=== PATIENT | male | born 1935 | race Caucasian/White ===

== ENCOUNTER 2020-07-23 22:28 | Inpatient (IN) | payer MEDICARE, MEDICAID ==
[~2020-07-23] VITALS: Ht 180.3 cm; Wt 93.4 kg
[2020-07-23] MEDS ORDERED: SODIUM CHLORIDE 0.9% 1,000 ML IV ONE (22:59)
[2020-07-23] MEDS ORDERED: ACETAMINOPHEN 650MG SUPP PR STA (22:59)
[2020-07-23] MEDS ORDERED: PIPERACILLIN/TAZ 3.375G PREMIX 50 ML IV ONE (23:00)
[2020-07-23] MEDS ORDERED: VANCOMYCIN 1 G PREMIX 200 ML IV ONE (23:00)
[2020-07-24] MEDS ORDERED: NOREPINEPHRINE 8 MG in DEXT 5% WATER 242 ML IV STA (00:09)
[2020-07-24] MEDS ORDERED: SODIUM CHLORIDE 0.9% 1000ML BAG (SEPSIS BOLUS) IV ONE (00:15)
[2020-07-24] MEDS ORDERED: AZITHROMYCIN 500 MG in DEXT 5% WATER 250 ML IV SCH (00:15)
[2020-07-24 00:16] LABS: BASOPHILS % 0.6 % (0.0-2.0); EOSINOPHILS % 0.9 % (0.0-5.0); HEMATOCRIT. 34.3 % (42.0-52.0); HEMOGLOBIN. 10.6 g/dL (14.0-18.0); LYMPHOCYTES % 16.1 % (20.0-50.0); MEAN CORPUSCULAR HEMOGLOBIN 28.8 pg (28.0-32.0); MEAN CORPUSCULAR VOLUME 93.2 fL (80.0-94.0); MEAN PLATELET VOLUME 10.2 fl (7.4-10.4); MONOCYTES % 3.5 % (2.0-8.0); NEUTROPHILS % 78.9 % (40.0-76.0); PLATELET 183 x1000/uL (130-400); RED BLOOD CELL COUNT 3.68 mill/uL (4.7-6.1); RED CELL DISTRIBUTION WIDTH 17.7 % (11.6-14.6)
[2020-07-24 00:24] LABS: CHLORIDE 107 mEq/L (98-107)
[2020-07-24 00:31] LABS: BETA HYDROXYBUTYRATE 0.2 mMol/L (0.0-0.3)
[2020-07-24 00:33] LABS: CREATINE KINASE 135 IU/L (39-308)
[2020-07-24] MEDS ORDERED: ASPIRIN 81MG TABLET PEG NR (01:00)
[2020-07-24 01:08] LABS: INR 1.1; PARTIAL THROMBOPLASTIN TIME 26.8 sec (23.4-31.0); PROTHROMBIN TIME 11.9 sec (9.6-11.0)
[2020-07-24] MEDS ORDERED: NOREPINEPHRINE 8MG/250ML PMX 250 ML IV PRN (01:45)
[2020-07-24 02:34] LABS: BG BASE EXCESS 13.3 mmol/L (-2.0-2.0); BG CARBOXYHEMOGLOBIN 1.5 % (0.5-1.5); BG DEOXYHEMOGLOBIN 6.3 % (0.0-5.0); BG FRACTION INSPIRED OXYGEN 30; BG HCO3 ACT 39.9 mmol/L (22.0-26.0); BG METHEMOGLOBIN 0.3 % (0.0-1.5); BG OXYGEN SATURATION 93.6 % (92.0-98.5); BG OXYHEMOGLOBIN 91.9 % (94.0-97.0); BG PCO2 57.6 mmHg (35.0-45.0); BG PH 7.458 (7.350-7.450); BG PO2 67.7 mmHg (75.0-100.0); BG SAMPLE SITE RIGHT RADIAL; BG TOTAL HEMOGLOBIN 14.7 g/dL (12.0-18.0); BG VENT MODE NASAL CANNULA
[2020-07-24] MEDS ORDERED: ACETAMINOPHEN 650MG SUPP PR NR (04:30)
[2020-07-24 08:14] LABS: CLARITY URINE CLOUDY (CLEAR); COLOR URINE DARK YELLOW (YELLOW); KETONES URINE TRACE (NEGATIVE); LEUKOCYTE ESTERASE URINE TRACE (NEGATIVE); NITRITE URINE NEGATIVE (NEGATIVE); OCCULT BLOOD URINE NEGATIVE (NEGATIVE); PROTEIN URINE 1+ (NEGATIVE); SPECIFIC GRAVITY URINE 1.023 (1.005-1.030)
[2020-07-24] MEDS ORDERED: DEXTROSE 50% WATER 50ML SYRINGE IV PRN (11:15)
[2020-07-24] MEDS ORDERED: PIPERACILLIN/TAZOBACTAM 3.375 G in DEXT 5% WATER 100 ML IV SCH (11:15)
[2020-07-24] MEDS: SODIUM CHLORIDE 0.45% 1,000 ML IV SCH ×2 (11:37→21:54)
[2020-07-24] MEDS ORDERED: VANCOMYCIN 1 G PREMIX 200 ML IV SCH (12:00)
[2020-07-24] MEDS: PIPERACILLIN/TAZOBACTAM 2.25 G in DEXTROSE 5% WATER 50 ML IV SCH ×2 (12:23→21:50)
[2020-07-24] MEDS ORDERED: INSULIN GLARGINE UD 100 UNITS/ML SYR SUBCUT ONE (12:30)
[2020-07-24] MEDS: BLOOD SUGAR DIAGNOSTIC STRIP TEST SCH ×3 (13:53→21:00)
[2020-07-24] MEDS: INSULIN LISPRO 100 UNITS/ML SUBCUT SCH ×2 (14:06→21:30)
[2020-07-24] MEDS: MIDODRINE HCL 5MG TABLET PO SCH ×2 (14:46→16:50)
[2020-07-24 17:48] LABS: BG BASE EXCESS 8.5 mmol/L (-2.0-2.0); BG DEOXYHEMOGLOBIN 1.7 % (0.0-5.0); BG FRACTION INSPIRED OXYGEN 36; BG HCO3 ACT 35.7 mmol/L (22.0-26.0); BG METHEMOGLOBIN 0.2 % (0.0-1.5); BG OXYGEN SATURATION 98.3 % (92.0-98.5); BG OXYHEMOGLOBIN 97.1 % (94.0-97.0); BG PCO2 61.8 mmHg (35.0-45.0); BG PH 7.379 (7.350-7.450); BG SAMPLE SITE LEFT RADIAL; BG TOTAL HEMOGLOBIN 12.7 g/dL (12.0-18.0); BG VENT MODE NASAL CANNULA
[2020-07-24] MEDS: ENOXAPARIN 100MG/ML SYR SUBCUT SCH (21:51)
[2020-07-24] MEDS ORDERED: INSULIN GLARGINE UD 100 UNITS/ML SYR SUBCUT SCH (22:00)
[2020-07-25] VITALS (103 sets, daily range): BP systolic 85–177; BP diastolic 27–114
[2020-07-25] MEDS ORDERED: NOREPINEPHRINE 8MG/250ML PMX 250 ML IV PRN (02:00)
[2020-07-25] MEDS: PIPERACILLIN/TAZOBACTAM 2.25 G in DEXTROSE 5% WATER 50 ML IV SCH ×4 (04:58→23:27)
[2020-07-25 05:33] LABS: HEMOGLOBIN. 10.3 g/dL (14.0-18.0); MEAN CORPUSCULAR HEMOGLOBIN 28.8 pg (28.0-32.0); MEAN CORPUSCULAR VOLUME 92.2 fL (80.0-94.0); PLATELET 230 x1000/uL (130-400); RED BLOOD CELL COUNT 3.58 mill/uL (4.7-6.1); RED CELL DISTRIBUTION WIDTH 17.7 % (11.6-14.6)
[2020-07-25] MEDS: INSULIN LISPRO 100 UNITS/ML SUBCUT SCH ×7 (06:35→21:36)
[2020-07-25] MEDS: BLOOD SUGAR DIAGNOSTIC STRIP TEST SCH ×4 (06:36→21:28)
[2020-07-25 07:23] LABS: PLATELET ESTIMATE NORMAL
[2020-07-25] MEDS: MIDODRINE HCL 5MG TABLET PO SCH ×3 (08:39→17:03)
[2020-07-25] MEDS ORDERED: SODIUM POLYSTYRENE SULFONATE 15 G/60 ML BOT PO NR (11:30)
[2020-07-25] MEDS ORDERED: NOREPINEPHRINE 8 MG in DEXT 5% WATER 242 ML IV PRN (12:00)
[2020-07-25] MEDS ORDERED: LIDOCAINE HCL 1% 20ML VIAL (Pyxis) INJ ONE (13:07)
[2020-07-25] MEDS ORDERED: VANCOMYCIN 1 G PREMIX 200 ML IV NR (15:00)
[2020-07-25] MEDS: ENOXAPARIN 100MG/ML SYR SUBCUT SCH (17:02)
[2020-07-25] MEDS: SODIUM CHLORIDE 0.45% 1,000 ML IV SCH (18:27)
[2020-07-25] MEDS ORDERED: ATOR10TA69 PO (18:54)
[2020-07-25] MEDS ORDERED: FURO-151 MT (18:54)
[2020-07-25] MEDS ORDERED: ONDA4TAB5 MT (18:54)
[2020-07-25] MEDS ORDERED: DIGO125T80 MT (18:54)
[2020-07-25] MEDS ORDERED: ASCO500C18 MT (18:54)
[2020-07-25] MEDS ORDERED: FINA5TAB11 MT (18:54)
[2020-07-25] MEDS ORDERED: GABA-529 MT (18:54)
[2020-07-25] MEDS ORDERED: LACT10SO7 MT (18:54)
[2020-07-25] MEDS ORDERED: INSNOV SUBCUT (18:54)
[2020-07-25] MEDS ORDERED: LANS30CA55 MT (18:54)
[2020-07-25] MEDS ORDERED: DILT60TA35 MT (18:54)
[2020-07-25] MEDS ORDERED: GLIM4TAB36 MT (18:54)
[2020-07-25] MEDS ORDERED: ZINC220T4 MT (18:54)
[2020-07-25] MEDS ORDERED: SENN1TAB35 MT (18:54)
[2020-07-25] MEDS ORDERED: MIDO5TAB4 MT (18:54)
[2020-07-25] MEDS ORDERED: APIX5TAB MT (18:54)
[2020-07-25] MEDS ORDERED: TERA2CAP4 MT (18:54)
[2020-07-25] MEDS ORDERED: MULT-230 MT (18:54)
[2020-07-25] MEDS ORDERED: LANTUSUD SUBCUT (18:54)
[2020-07-25] MEDS: INSULIN GLARGINE UD 100 UNITS/ML SYR SUBCUT SCH (21:37)
[2020-07-25] MEDS: PHENYLEPHRINE 50 MG in DEXT 5% WATER 245 ML IV PRN (23:28)
[2020-07-26] VITALS (88 sets, daily range): BP systolic 84–140; BP diastolic 45–89
[2020-07-26 05:09] LABS: BASOPHILS % 0.5 % (0.0-2.0); EOSINOPHILS % 1.1 % (0.0-5.0); HEMATOCRIT. 29.3 % (42.0-52.0); HEMOGLOBIN. 9.2 g/dL (14.0-18.0); LYMPHOCYTES % 7.1 % (20.0-50.0); MEAN CORPUSCULAR HEMOGLOBIN 28.8 pg (28.0-32.0); MEAN CORPUSCULAR VOLUME 91.8 fL (80.0-94.0); MEAN PLATELET VOLUME 10.4 fl (7.4-10.4); MONOCYTES % 3.1 % (2.0-8.0); NEUTROPHILS % 88.2 % (40.0-76.0); PLATELET 162 x1000/uL (130-400); RED BLOOD CELL COUNT 3.19 mill/uL (4.7-6.1); RED CELL DISTRIBUTION WIDTH 17.9 % (11.6-14.6)
[2020-07-26] MEDS: BLOOD SUGAR DIAGNOSTIC STRIP TEST SCH ×4 (06:35→21:03)
[2020-07-26] MEDS: INSULIN LISPRO 100 UNITS/ML SUBCUT SCH ×7 (06:36→21:08)
[2020-07-26] MEDS: PIPERACILLIN/TAZOBACTAM 2.25 G in DEXTROSE 5% WATER 50 ML IV SCH ×4 (06:39→23:55)
[2020-07-26] MEDS: MIDODRINE HCL 5MG TABLET PO SCH ×3 (08:28→16:20)
[2020-07-26] MEDS ORDERED: POTASSIUM CHLORIDE INJ 40 MEQ in DEXT 5% WATER 250 ML IV NR (08:30)
[2020-07-26] MEDS: PHENYLEPHRINE 50 MG in DEXT 5% WATER 245 ML IV PRN ×2 (08:46→17:36)
[2020-07-26] MEDS: INSULIN GLARGINE UD 100 UNITS/ML SYR SUBCUT SCH ×2 (08:49→21:09)
[2020-07-26] MEDS ORDERED: INSULIN GLARGINE UD 100 UNITS/ML SYR SUBCUT SCH (10:00)
[2020-07-26] MEDS ORDERED: GUAIFENESIN-DM 200MG-20MG/10ML UDC GT PRN (12:15)
[2020-07-26] MEDS ORDERED: VANCOMYCIN 1 G PREMIX 200 ML IV NR (14:00)
[2020-07-26] MEDS: ENOXAPARIN 80MG/0.8ML SYR SUBCUT SCH (16:21)
[2020-07-26] MEDS: GUAIFENESIN-DM 200MG-20MG/10ML UDC GT SCH (23:56)
[2020-07-26] MEDS: SODIUM CHLORIDE 0.45% 1,000 ML IV SCH (23:56)
[2020-07-27] VITALS (60 sets, daily range): BP systolic 70–155; BP diastolic 36–88
[2020-07-27] MEDS: PIPERACILLIN/TAZOBACTAM 2.25 G in DEXTROSE 5% WATER 50 ML IV SCH (05:09)
[2020-07-27] MEDS: GUAIFENESIN-DM 200MG-20MG/10ML UDC GT SCH ×3 (05:09→18:29)
[2020-07-27 06:22] LABS: BASOPHILS % 1.4 % (0.0-2.0); HEMATOCRIT. 30.6 % (42.0-52.0); HEMOGLOBIN. 9.7 g/dL (14.0-18.0); LYMPHOCYTES % 10.5 % (20.0-50.0); MEAN CORPUSCULAR HEMOGLOBIN 28.7 pg (28.0-32.0); MEAN PLATELET VOLUME 9.7 fl (7.4-10.4); MONOCYTES % 3.9 % (2.0-8.0); NEUTROPHILS % 82.2 % (40.0-76.0); PLATELET 176 x1000/uL (130-400); RED BLOOD CELL COUNT 3.36 mill/uL (4.7-6.1)
[2020-07-27] MEDS: BLOOD SUGAR DIAGNOSTIC STRIP TEST SCH ×4 (08:01→20:24)
[2020-07-27] MEDS: MIDODRINE HCL 5MG TABLET PO SCH ×3 (08:07→17:20)
[2020-07-27] MEDS: INSULIN LISPRO 100 UNITS/ML SUBCUT SCH ×7 (08:10→20:47)
[2020-07-27] MEDS: INSULIN GLARGINE UD 100 UNITS/ML SYR SUBCUT SCH ×2 (10:10→20:48)
[2020-07-27] MEDS ORDERED: POTASSIUM CHLORIDE 20MEQ/PACKET PO NR (10:15)
[2020-07-27] MEDS: PIPERACILLIN/TAZOBACTAM 3.375 G in DEXT 5% WATER 100 ML IV SCH ×2 (11:19→18:32)
[2020-07-27] MEDS ORDERED: KCL 20MEQ/100ML PREMIX 100 ML IV SCH (13:00)
[2020-07-27] MEDS: VANCOMYCIN 1 G PREMIX 200 ML IV SCH (13:37)
[2020-07-27] MEDS: ENOXAPARIN 80MG/0.8ML SYR SUBCUT SCH (17:20)
[2020-07-27] MEDS: SODIUM CHLORIDE 0.45% 1,000 ML IV SCH (19:15)
[2020-07-27] MEDS ORDERED: DIGOXIN 500MCG/2ML AMP IV SCH (23:45)
[2020-07-28] VITALS (39 sets, daily range): BP systolic 111–143; BP diastolic 54–74
[2020-07-28 05:01] LABS: BASOPHILS % 0.6 % (0.0-2.0); EOSINOPHILS % 3.1 % (0.0-5.0); HEMATOCRIT. 27.5 % (42.0-52.0); HEMOGLOBIN. 8.8 g/dL (14.0-18.0); LYMPHOCYTES % 13.9 % (20.0-50.0); MEAN PLATELET VOLUME 9.4 fl (7.4-10.4); MONOCYTES % 5.4 % (2.0-8.0); PLATELET 197 x1000/uL (130-400); RED BLOOD CELL COUNT 3.02 mill/uL (4.7-6.1); RED CELL DISTRIBUTION WIDTH 18.7 % (11.6-14.6)
[2020-07-28] MEDS: GUAIFENESIN-DM 200MG-20MG/10ML UDC GT SCH ×5 (06:22→23:11)
[2020-07-28] MEDS: PIPERACILLIN/TAZOBACTAM 3.375 G in DEXT 5% WATER 100 ML IV SCH ×4 (06:22→13:21)
[2020-07-28] MEDS: BLOOD SUGAR DIAGNOSTIC STRIP TEST SCH ×3 (07:50→20:10)
[2020-07-28] MEDS: INSULIN LISPRO 100 UNITS/ML SUBCUT SCH ×6 (07:50→20:10)
[2020-07-28] MEDS: MIDODRINE HCL 5MG TABLET PO SCH ×3 (09:21→17:00)
[2020-07-28] MEDS: INSULIN GLARGINE UD 100 UNITS/ML SYR SUBCUT SCH (11:00)
[2020-07-28] MEDS: ENOXAPARIN 80MG/0.8ML SYR SUBCUT SCH ×2 (13:35→23:11)
[2020-07-28] MEDS: VANCOMYCIN 1 G PREMIX 200 ML IV SCH (14:49)
[2020-07-28] MEDS: SODIUM CHLORIDE 0.45% 1,000 ML IV SCH (14:50)
[2020-07-28] MEDS ORDERED: DIGOXIN 500MCG/2ML AMP IV SCH (18:00)
[2020-07-29] VITALS (10 sets, daily range): BP systolic 108–159; BP diastolic 51–78
[2020-07-29] MEDS: GUAIFENESIN-DM 200MG-20MG/10ML UDC GT SCH ×2 (06:03→13:47)
[2020-07-29] MEDS: BLOOD SUGAR DIAGNOSTIC STRIP TEST SCH ×2 (06:04→11:50)
[2020-07-29 06:19] LABS: BASOPHILS % 0.7 % (0.0-2.0); EOSINOPHILS % 3.4 % (0.0-5.0); HEMATOCRIT. 26.1 % (42.0-52.0); HEMOGLOBIN. 8.4 g/dL (14.0-18.0); LYMPHOCYTES % 14.2 % (20.0-50.0); MEAN CORPUSCULAR HEMOGLOBIN 29.2 pg (28.0-32.0); MEAN CORPUSCULAR VOLUME 90.5 fL (80.0-94.0); MEAN PLATELET VOLUME 8.9 fl (7.4-10.4); MONOCYTES % 6.2 % (2.0-8.0); NEUTROPHILS % 75.5 % (40.0-76.0); PLATELET 241 x1000/uL (130-400); RED BLOOD CELL COUNT 2.89 mill/uL (4.7-6.1); RED CELL DISTRIBUTION WIDTH 18.6 % (11.6-14.6)
[2020-07-29] MEDS: INSULIN LISPRO 100 UNITS/ML SUBCUT SCH ×2 (06:55→10:22)
[2020-07-29 07:21] LABS: CHLORIDE 112 mEq/L (98-107)
[2020-07-29] MEDS: ENOXAPARIN 80MG/0.8ML SYR SUBCUT SCH (10:21)
[2020-07-29] MEDS: SODIUM CHLORIDE 0.45% 1,000 ML IV SCH (12:07)
[2020-07-29] MEDS ORDERED: MIDODRINE HCL 5MG TABLET PO SCH (13:00)
== END 2020-07-29 16:45 | DRG 871 ==
LOC: ER 22:28 → MICUSO 07-24 01:14 → EDBEDREQDT 07-24 01:18 → EDBEDREQTM 07-24 01:18 → EDBEDREQ 07-24 01:18 → EDBEDREQSVC 07-24 01:18 → EDBEDREQ 07-24 17:33 → ENRESERV 07-24 20:48 → CANRESERV 07-24 20:48 → MICUSO 07-25 05:43 → CVICU 07-27 01:49 → 3WST 07-28 16:59
PROVIDERS: ADMIT Internal Medicine; ATTEND Internal Medicine
PROC: 02HV33Z Insertion of Infusion Device into Superior Vena Cava, Percutaneous Approach (ICD-10-PCS; principal; 2020-07-25)
PROC: B518ZZA Fluoroscopy of Superior Vena Cava, Guidance (ICD-10-PCS; 2020-07-25)
PROC: B548ZZA Ultrasonography of Superior Vena Cava, Guidance (ICD-10-PCS; 2020-07-25)
DX: A41.9 Sepsis, unspecified organism (principal); R65.21 Severe sepsis with septic shock; L89.153 Pressure ulcer of sacral region, stage 3; J96.01 Acute respiratory failure with hypoxia; E43 Unspecified severe protein-calorie malnutrition; N17.0 Acute kidney failure with tubular necrosis; G93.41 Metabolic encephalopathy; E87.0 Hyperosmolality and hypernatremia; I50.22 Chronic systolic (congestive) heart failure; I13.0 Hypertensive heart and chronic kidney disease with heart failure and stage 1 through stage 4 chronic kidney disease, or unspecified chronic kidney disease; I48.20 Chronic atrial fibrillation, unspecified; I48.92 Unspecified atrial flutter; E87.4 Mixed disorder of acid-base balance; G93.40 Encephalopathy, unspecified; I42.9 Cardiomyopathy, unspecified; I69.954 Hemiplegia and hemiparesis following unspecified cerebrovascular disease affecting left non-dominant side; N18.9 Chronic kidney disease, unspecified; R13.10 Dysphagia, unspecified; E11.22 Type 2 diabetes mellitus with diabetic chronic kidney disease; E11.65 Type 2 diabetes mellitus with hyperglycemia; Z20.828 Contact with and (suspected) exposure to other viral communicable diseases; E78.5 Hyperlipidemia, unspecified; K21.9 Gastro-esophageal reflux disease without esophagitis; I48.0 Paroxysmal atrial fibrillation; I49.5 Sick sinus syndrome; N40.0 Benign prostatic hyperplasia without lower urinary tract symptoms; M10.9 Gout, unspecified; L89.156 Pressure-induced deep tissue damage of sacral region; D64.9 Anemia, unspecified; I49.1 Atrial premature depolarization; Z79.01 Long term (current) use of anticoagulants; Z79.4 Long term (current) use of insulin; Z93.1 Gastrostomy status; Z95.810 Presence of automatic (implantable) cardiac defibrillator; Z68.28 Body mass index [BMI] 28.0-28.9, adult; Z74.01 Bed confinement status
CPT/HCPCS: 36415; 36600; 71045; 76937; 80048; 80053; 80202; 81003; 82010; 82375; 82550; 82728; 82805; 82962; 83036; 83605; 83615; 83735; 83880; 84145; 84484; 85025; 86140; 87426; 87493; 87635; 87804; 93005; 93970; 99291; C1725; J0456; J1650; J1815; J2370; J2543; J3370; J3480; J3490; J7030; J7060

== ENCOUNTER 2020-08-14 14:16 | Inpatient (IN) | payer MEDICARE, MEDICAID ==
[~2020-08-14] VITALS: Ht 152.4 cm; Wt 90.3 kg
[~2020-08-14 14:16] MED LIST: AMIODARONE HCL 50MG/ML 3ML VIAL IV ONE; APIX5TAB MT; ASCO500C18 MT; ATOR10TA69 PO; ATROPINE SULFATE 1MG/10ML SYR ONE; DEXTROSE 50% WATER 50ML SYRINGE IV ONE; DIGO125T80 MT; DILT60TA35 MT; EPINEPHRINE 0.1MG/ML (1:10,000) 10ML SYR ONE; FINA5TAB11 MT; FURO-151 MT; GABA-529 MT; GLIM4TAB36 MT; INSNOV SUBCUT; LACT10SO7 MT; LANS30CA55 MT; LANTUSUD SUBCUT; MIDO5TAB4 MT; MULT-230 MT; ONDA4TAB5 MT; SENN1TAB35 MT; SODIUM BICARBONATE 8.4% 1 MEQ/ML 50ML SYR IV ONE; TERA2CAP4 MT; ZINC220T4 MT
[2020-08-14] MEDS ORDERED: SODIUM CHLORIDE 0.9% 1000ML BAG (SEPSIS BOLUS) IV ONE (14:30)
[2020-08-14] MEDS ORDERED: VANCOMYCIN 1 G PREMIX 200 ML IV ONE (14:30)
[2020-08-14] MEDS ORDERED: PIPERACILLIN/TAZ 3.375G PREMIX 50 ML IV ONE (14:30)
[2020-08-14] MEDS ORDERED: HYDROCORTISONE SOD SUCCINATE 100 MG/2 ML VIAL IV ONE (14:30)
[2020-08-14 15:04] LABS: BASOPHILS % 0.6 % (0.0-2.0); EOSINOPHILS % 1.6 % (0.0-5.0); HEMATOCRIT. 28.8 % (42.0-52.0); HEMOGLOBIN. 9.1 g/dL (14.0-18.0); LYMPHOCYTES % 11.2 % (20.0-50.0); MEAN CORPUSCULAR HEMOGLOBIN 28.4 pg (28.0-32.0); MEAN CORPUSCULAR VOLUME 90.1 fL (80.0-94.0); MEAN PLATELET VOLUME 8.9 fl (7.4-10.4); MONOCYTES % 5.6 % (2.0-8.0); PLATELET 268 x1000/uL (130-400); RED CELL DISTRIBUTION WIDTH 18.4 % (11.6-14.6)
[2020-08-14 15:13] LABS: CHLORIDE 107 mEq/L (98-107); INR 1.2; PROTHROMBIN TIME 12.4 sec (9.6-11.0)
[2020-08-14 15:25] LABS: CLARITY URINE TURBID (CLEAR); COLOR URINE DARK YELLOW (YELLOW); KETONES URINE NEGATIVE (NEGATIVE); LEUKOCYTE ESTERASE URINE 3+ (NEGATIVE); NITRITE URINE NEGATIVE (NEGATIVE); OCCULT BLOOD URINE 3+ (NEGATIVE); PROTEIN URINE 2+ (NEGATIVE); SPECIFIC GRAVITY URINE 1.022 (1.005-1.030)
[2020-08-14] MEDS ORDERED: NOREPINEPHRINE 8MG/250ML PMX 250 ML IV NR (15:30)
[2020-08-14 15:56] LABS: CANNABINOID URINE SCREEN NEGATIVE (NEGATIVE); OPIATES URINE SCREEN NEGATIVE (NEGATIVE); PHENCYCLIDINE URINE SCREEN NEGATIVE (NEGATIVE)
[2020-08-14 15:57] LABS: *AMPHETAMINES SCREEN URINE NEGATIVE (NEGATIVE); *BARBITURATES SCREEN URINE NEGATIVE (NEGATIVE); *BENZODIAZEPINES SCREEN URINE NEGATIVE (NEGATIVE); *COCAINE SCREEN URINE NEGATIVE (NEGATIVE); METHADONE URINE SCREEN NEGATIVE (NEGATIVE)
[2020-08-14] MEDS ORDERED: FENTANYL CITRATE/PF 50MCG/ML 2ML VIAL IV ONE (17:15)
[2020-08-14] MEDS ORDERED: MIDAZOLAM HCL 100 MG in DEXT 5% WATER 80 ML IV ONE (17:15)
[2020-08-14 22:42] VITALS: BP 145/67
[2020-08-14 22:45] VITALS: BP 147/77
[2020-08-14 23:00] VITALS: BP 136/79
[2020-08-14] MEDS ORDERED: IOHEXOL-300 100 ML BOTTLE ONE (23:09)
[2020-08-14 23:15] VITALS: BP 128/72
[2020-08-14] MEDS ORDERED: ONDANSETRON HCL 4MG/2ML INJ IV PRN (23:15)
[2020-08-14] MEDS ORDERED: NOREPINEPHRINE 8MG/250ML PMX 250 ML IV ONE (23:15)
[2020-08-14 23:30] VITALS: BP 133/70
[2020-08-14 23:33] LABS: BG BASE EXCESS 6.4 mmol/L (-2.0-2.0); BG CARBOXYHEMOGLOBIN 0.3 % (0.5-1.5); BG DEOXYHEMOGLOBIN 0.4 % (0.0-5.0); BG FRACTION INSPIRED OXYGEN 100; BG HCO3 ACT 30.5 mmol/L (22.0-26.0); BG METHEMOGLOBIN 0.4 % (0.0-1.5); BG OXYGEN SATURATION 99.6 % (92.0-98.5); BG OXYHEMOGLOBIN 98.9 % (94.0-97.0); BG PCO2 41.9 mmHg (35.0-45.0); BG PO2 508.9 mmHg (75.0-100.0); BG SAMPLE SITE RIGHT BRACHIAL; BG TOTAL HEMOGLOBIN 11.1 g/dL (12.0-18.0); BG VENT MODE VENT - AC
[2020-08-14 23:45] VITALS: BP 136/76
[2020-08-15] VITALS (82 sets, daily range): BP systolic 83–145; BP diastolic 38–72
[2020-08-15] MEDS ORDERED: DEXT 5%/0.45% NACL 1000ML 1,000 ML IV SCH
[2020-08-15] MEDS ORDERED: MIDAZOLAM HCL 100 MG in DEXT 5% WATER 80 ML IV PRN (00:30)
[2020-08-15] MEDS ORDERED: ETOMIDATE 2MG/ML 10ML VIAL IV ONE (00:30)
[2020-08-15] MEDS ORDERED: SUCCINYLCHOLINE CHLORIDE 200MG/10ML IV ONE (00:30)
[2020-08-15] MEDS ORDERED: ATROPINE SULFATE 1MG/10ML SYR ONE (00:30)
[2020-08-15] MEDS: PIPERACILLIN/TAZOBACTAM 2.25 G in DEXTROSE 5% WATER 50 ML IV SCH ×4 (01:11→17:09)
[2020-08-15] MEDS: NOREPINEPHRINE 8 MG in DEXTROSE 5% WATER 250 ML IV PRN ×3 (01:34→18:55)
[2020-08-15] MEDS ORDERED: PIPERACILLIN/TAZOBACTAM 3.375 G/VIAL IV SCH (06:00)
[2020-08-15 06:23] LABS: HEMATOCRIT. 29.6 % (42.0-52.0); HEMOGLOBIN. 9.1 g/dL (14.0-18.0); MEAN CORPUSCULAR HEMOGLOBIN 28.1 pg (28.0-32.0); MEAN CORPUSCULAR VOLUME 91.4 fL (80.0-94.0); MEAN PLATELET VOLUME 9.4 fl (7.4-10.4); PLATELET 290 x1000/uL (130-400); RED BLOOD CELL COUNT 3.24 mill/uL (4.7-6.1); RED CELL DISTRIBUTION WIDTH 18.4 % (11.6-14.6)
[2020-08-15] MEDS ORDERED: IPRATROPIUM/ALBUTEROL 0.5-3(2.5)MG/3ML NEB HHN PRN (08:45)
[2020-08-15] MEDS ORDERED: APIXABAN 2.5 MG TABLET PO SCH (09:00)
[2020-08-15] MEDS: PANTOPRAZOLE SODIUM 40 MG/VIAL IV SCH (09:04)
[2020-08-15 09:29] LABS: PLATELET ESTIMATE NORMAL
[2020-08-15] MEDS ORDERED: DEXTROSE 50% WATER 50ML SYRINGE IV PRN (09:30)
[2020-08-15] MEDS: INSULIN LISPRO 100 UNITS/ML SUBCUT SCH ×4 (09:32→21:57)
[2020-08-15] MEDS: BLOOD SUGAR DIAGNOSTIC STRIP TEST SCH ×4 (09:32→21:32)
[2020-08-15] MEDS: IPRATROPIUM/ALBUTEROL 0.5-3(2.5)MG/3ML NEB HHN SCH ×3 (12:19→20:42)
[2020-08-15] MEDS: SODIUM CHLORIDE 0.45% 1,000 ML IV SCH (12:37)
[2020-08-15] MEDS: DIGOXIN 125MCG TABLET GT SCH (17:08)
[2020-08-15] MEDS: VANCOMYCIN 750 MG PREMIX 150 ML IV SCH (17:08)
[2020-08-16] VITALS (63 sets, daily range): BP systolic 85–136; BP diastolic 40–69
[2020-08-16] MEDS: PIPERACILLIN/TAZOBACTAM 2.25 G in DEXTROSE 5% WATER 50 ML IV SCH ×4 (00:08→19:08)
[2020-08-16] MEDS: SODIUM CHLORIDE 0.45% 1,000 ML IV SCH ×2 (00:12→19:08)
[2020-08-16] MEDS: IPRATROPIUM/ALBUTEROL 0.5-3(2.5)MG/3ML NEB HHN SCH ×4 (01:21→20:57)
[2020-08-16 05:12] LABS: BASOPHILS % 0.5 % (0.0-2.0); EOSINOPHILS % 1.3 % (0.0-5.0); HEMATOCRIT. 25.8 % (42.0-52.0); HEMOGLOBIN. 8.1 g/dL (14.0-18.0); LYMPHOCYTES % 17.8 % (20.0-50.0); MEAN CORPUSCULAR HEMOGLOBIN 27.9 pg (28.0-32.0); MEAN CORPUSCULAR VOLUME 88.7 fL (80.0-94.0); MEAN PLATELET VOLUME 8.9 fl (7.4-10.4); MONOCYTES % 6.2 % (2.0-8.0); NEUTROPHILS % 74.2 % (40.0-76.0); PLATELET 253 x1000/uL (130-400); RED BLOOD CELL COUNT 2.91 mill/uL (4.7-6.1); RED CELL DISTRIBUTION WIDTH 18.6 % (11.6-14.6)
[2020-08-16] MEDS: BLOOD SUGAR DIAGNOSTIC STRIP TEST SCH ×4 (06:48→21:58)
[2020-08-16] MEDS: INSULIN LISPRO 100 UNITS/ML SUBCUT SCH ×4 (06:54→22:01)
[2020-08-16] MEDS: NOREPINEPHRINE 8 MG in DEXTROSE 5% WATER 250 ML IV PRN (08:32)
[2020-08-16 09:08] LABS: PHOSPHORUS 3.1 mg/dL (2.5-4.9)
[2020-08-16 09:13] LABS: BG BASE EXCESS 9.1 mmol/L (-2.0-2.0); BG CARBOXYHEMOGLOBIN 0.3 % (0.5-1.5); BG DEOXYHEMOGLOBIN 1.6 % (0.0-5.0); BG FRACTION INSPIRED OXYGEN 40; BG HCO3 ACT 31.4 mmol/L (22.0-26.0); BG METHEMOGLOBIN 0.3 % (0.0-1.5); BG OXYGEN SATURATION 98.4 % (92.0-98.5); BG OXYHEMOGLOBIN 97.8 % (94.0-97.0); BG PCO2 33.9 mmHg (35.0-45.0); BG PH 7.585 (7.350-7.450); BG PO2 121.5 mmHg (75.0-100.0); BG TOTAL HEMOGLOBIN 8.8 g/dL (12.0-18.0); BG VENT MODE VENT - AC
[2020-08-16] MEDS: PANTOPRAZOLE SODIUM 40 MG/VIAL IV SCH (09:23)
[2020-08-16] MEDS ORDERED: POTASSIUM CHLORIDE 20MEQ TABLET SR PO SCH (10:30)
[2020-08-16] MEDS ORDERED: ALBUMIN HUMAN 25GM/100ML (25%) IV NR (11:00)
[2020-08-16] MEDS: MIDODRINE HCL 5MG TABLET PO SCH ×2 (13:13→22:02)
[2020-08-16] MEDS: VANCOMYCIN 750 MG PREMIX 150 ML IV SCH (14:51)
[2020-08-16] MEDS: DIGOXIN 125MCG TABLET GT SCH (19:08)
[2020-08-17] VITALS (63 sets, daily range): BP systolic 95–140; BP diastolic 36–60
[2020-08-17] MEDS: PIPERACILLIN/TAZOBACTAM 2.25 G in DEXTROSE 5% WATER 50 ML IV SCH ×3 (00:06→11:54)
[2020-08-17] MEDS: SODIUM CHLORIDE 0.45% 1,000 ML IV SCH ×2 (01:30→09:31)
[2020-08-17] MEDS: IPRATROPIUM/ALBUTEROL 0.5-3(2.5)MG/3ML NEB HHN SCH ×2 (02:28→20:20)
[2020-08-17 05:15] LABS: BASOPHILS % 0.6 % (0.0-2.0); EOSINOPHILS % 8.2 % (0.0-5.0); HEMATOCRIT. 23.4 % (42.0-52.0); HEMOGLOBIN. 7.4 g/dL (14.0-18.0); MEAN CORPUSCULAR HEMOGLOBIN 28.4 pg (28.0-32.0); MEAN CORPUSCULAR VOLUME 89.8 fL (80.0-94.0); MEAN PLATELET VOLUME 8.8 fl (7.4-10.4); MONOCYTES % 5.5 % (2.0-8.0); NEUTROPHILS % 70.7 % (40.0-76.0); PLATELET 200 x1000/uL (130-400); RED BLOOD CELL COUNT 2.61 mill/uL (4.7-6.1); RED CELL DISTRIBUTION WIDTH 18.7 % (11.6-14.6)
[2020-08-17 05:32] LABS: PHOSPHORUS 4.2 mg/dL (2.5-4.9)
[2020-08-17] MEDS: INSULIN LISPRO 100 UNITS/ML SUBCUT SCH ×4 (05:44→21:43)
[2020-08-17] MEDS: MIDODRINE HCL 5MG TABLET PO SCH ×3 (05:45→21:47)
[2020-08-17] MEDS: BLOOD SUGAR DIAGNOSTIC STRIP TEST SCH ×4 (05:45→21:36)
[2020-08-17 08:03] LABS: BG BASE EXCESS 6.4 mmol/L (-2.0-2.0); BG CARBOXYHEMOGLOBIN 0.1 % (0.5-1.5); BG DEOXYHEMOGLOBIN 2.1 % (0.0-5.0); BG HCO3 ACT 30.2 mmol/L (22.0-26.0); BG METHEMOGLOBIN 0.5 % (0.0-1.5); BG OXYGEN SATURATION 97.9 % (92.0-98.5); BG OXYHEMOGLOBIN 97.3 % (94.0-97.0); BG PCO2 39.9 mmHg (35.0-45.0); BG PH 7.497 (7.350-7.450); BG PO2 121.4 mmHg (75.0-100.0); BG SAMPLE SITE ALINE; BG TOTAL HEMOGLOBIN 7.3 g/dL (12.0-18.0); BG TOTAL RESPIRATORY RATE 14 b/min; BG VENT MODE VENT - SIMV
[2020-08-17] MEDS: PANTOPRAZOLE SODIUM 40 MG/VIAL IV SCH (09:30)
[2020-08-17] MEDS ORDERED: POTASSIUM CHLORIDE INJ 40 MEQ in DEXT 5% WATER 250 ML IV SCH (10:00)
[2020-08-17] MEDS ORDERED: ALBUMIN HUMAN 25GM/100ML (25%) IV SCH (10:45)
[2020-08-17] MEDS ORDERED: POTASSIUM CHLORIDE 20MEQ TABLET SR PO NR (10:55)
[2020-08-17] MEDS: DEXT 5%/0.2% NACL 1,000 ML IV SCH (11:54)
[2020-08-17] MEDS ORDERED: POTASSIUM CHLORIDE 20MEQ/PACKET PO SCH (14:45)
[2020-08-17] MEDS: VANCOMYCIN 750 MG PREMIX 150 ML IV SCH (14:56)
[2020-08-17] MEDS: DIGOXIN 125MCG TABLET GT SCH (17:38)
[2020-08-18] VITALS (54 sets, daily range): BP systolic 0–177; BP diastolic 0–65
[2020-08-18] MEDS: DEXT 5%/0.2% NACL 1,000 ML IV SCH ×2 (00:05→16:09)
[2020-08-18] MEDS: IPRATROPIUM/ALBUTEROL 0.5-3(2.5)MG/3ML NEB HHN SCH ×4 (00:48→20:25)
[2020-08-18] MEDS: MIDODRINE HCL 5MG TABLET PO SCH ×3 (05:38→22:00)
[2020-08-18 05:56] LABS: BASOPHILS % 0.4 % (0.0-2.0); EOSINOPHILS % 7.9 % (0.0-5.0); HEMATOCRIT. 23.8 % (42.0-52.0); HEMOGLOBIN. 7.6 g/dL (14.0-18.0); LYMPHOCYTES % 9.9 % (20.0-50.0); MEAN CORPUSCULAR HEMOGLOBIN 28.5 pg (28.0-32.0); MEAN CORPUSCULAR VOLUME 89.1 fL (80.0-94.0); MEAN PLATELET VOLUME 8.6 fl (7.4-10.4); MONOCYTES % 4.9 % (2.0-8.0); NEUTROPHILS % 76.9 % (40.0-76.0); PLATELET 206 x1000/uL (130-400); RED BLOOD CELL COUNT 2.67 mill/uL (4.7-6.1)
[2020-08-18 06:00] LABS: PHOSPHORUS 2.4 mg/dL (2.5-4.9)
[2020-08-18 06:16] LABS: DIGOXIN 1.1 ng/mL (0.9-2.0)
[2020-08-18] MEDS: BLOOD SUGAR DIAGNOSTIC STRIP TEST SCH ×4 (07:17→21:45)
[2020-08-18] MEDS: INSULIN LISPRO 100 UNITS/ML SUBCUT SCH ×4 (07:19→22:00)
[2020-08-18 08:24] LABS: BG BASE EXCESS 4.1 mmol/L (-2.0-2.0); BG CARBOXYHEMOGLOBIN 0.3 % (0.5-1.5); BG FRACTION INSPIRED OXYGEN 30; BG METHEMOGLOBIN 0.3 % (0.0-1.5); BG OXYHEMOGLOBIN 97.4 % (94.0-97.0); BG PCO2 39.4 mmHg (35.0-45.0); BG PO2 111.1 mmHg (75.0-100.0); BG SAMPLE SITE ALINE; BG TOTAL HEMOGLOBIN 7.8 g/dL (12.0-18.0); BG TOTAL RESPIRATORY RATE 13 b/min; BG VENT MODE VENT - AC
[2020-08-18] MEDS ORDERED: POTASSIUM CHLORIDE INJ 40 MEQ in DEXT 5% WATER 250 ML IV SCH (09:00)
[2020-08-18] MEDS: PANTOPRAZOLE SODIUM 40 MG/VIAL IV SCH (09:09)
[2020-08-18 10:46] LABS: BG CARBOXYHEMOGLOBIN 0.3 % (0.5-1.5); BG DEOXYHEMOGLOBIN 2.4 % (0.0-5.0); BG HCO3 ACT 28.7 mmol/L (22.0-26.0); BG METHEMOGLOBIN 0.3 % (0.0-1.5); BG OXYGEN SATURATION 97.6 % (92.0-98.5); BG PCO2 43.8 mmHg (35.0-45.0); BG PH 7.434 (7.350-7.450); BG PO2 106.5 mmHg (75.0-100.0); BG SAMPLE SITE ALINE; BG TOTAL HEMOGLOBIN 10.1 g/dL (12.0-18.0); BG VENT MODE VENT - SIMV
[2020-08-18] MEDS ORDERED: POTASSIUM PHOS,M-BASIC-D-BASIC 15 MMOL in DEXT 5% WATER 245 ML IV SCH (14:00)
[2020-08-18] MEDS: VANCOMYCIN 750 MG PREMIX 150 ML IV SCH (16:09)
[2020-08-18] MEDS: DIGOXIN 125MCG TABLET GT SCH (18:05)
[2020-08-18] MEDS ORDERED: CEFTRIAXONE 1 G PREMIX 50 ML IV SCH (21:00)
[2020-08-18] MEDS: INSULIN GLARGINE UD 100 UNITS/ML SYR SUBCUT SCH (22:12)
[2020-08-18] MEDS: CEFTRIAXONE 1,000 MG in DEXTROSE 5% WATER 50 ML IV SCH (22:34)
[2020-08-19] VITALS (70 sets, daily range): BP systolic 89–193; BP diastolic 34–90
[2020-08-19] MEDS: IPRATROPIUM/ALBUTEROL 0.5-3(2.5)MG/3ML NEB HHN SCH ×4 (02:29→20:47)
[2020-08-19 05:45] LABS: CHLORIDE 112 mEq/L (98-107)
[2020-08-19 05:50] LABS: PHOSPHORUS 2.1 mg/dL (2.5-4.9)
[2020-08-19 05:57] LABS: BASOPHILS % 0.5 % (0.0-2.0); EOSINOPHILS % 4.7 % (0.0-5.0); HEMATOCRIT. 23.2 % (42.0-52.0); HEMOGLOBIN. 7.5 g/dL (14.0-18.0); LYMPHOCYTES % 8.6 % (20.0-50.0); MEAN CORPUSCULAR HEMOGLOBIN 28.7 pg (28.0-32.0); MEAN CORPUSCULAR VOLUME 89.1 fL (80.0-94.0); MEAN PLATELET VOLUME 8.3 fl (7.4-10.4); MONOCYTES % 5.2 % (2.0-8.0); PLATELET 243 x1000/uL (130-400); RED CELL DISTRIBUTION WIDTH 17.7 % (11.6-14.6)
[2020-08-19] MEDS: MIDODRINE HCL 5MG TABLET PO SCH ×3 (06:19→22:00)
[2020-08-19] MEDS: DEXT 5%/0.2% NACL 1,000 ML IV SCH ×2 (06:51→17:33)
[2020-08-19] MEDS: BLOOD SUGAR DIAGNOSTIC STRIP TEST SCH ×3 (07:52→17:25)
[2020-08-19] MEDS: INSULIN LISPRO 100 UNITS/ML SUBCUT SCH ×3 (07:54→17:40)
[2020-08-19] MEDS: PANTOPRAZOLE SODIUM 40 MG/VIAL IV SCH (09:12)
[2020-08-19] MEDS: INSULIN GLARGINE UD 100 UNITS/ML SYR SUBCUT SCH ×2 (09:19→22:49)
[2020-08-19] MEDS ORDERED: POTASSIUM PHOS,M-BASIC-D-BASIC 15 MMOL in DEXT 5% WATER 245 ML IV NR (10:00)
[2020-08-19] MEDS ORDERED: METOCLOPRAMIDE HCL 10MG/2ML VIAL IV SCH (12:00)
[2020-08-19 13:42] LABS: BG BASE EXCESS 2.3 mmol/L (-2.0-2.0); BG DEOXYHEMOGLOBIN 1.9 % (0.0-5.0); BG FRACTION INSPIRED OXYGEN 30; BG HCO3 ACT 26.9 mmol/L (22.0-26.0); BG METHEMOGLOBIN 0.3 % (0.0-1.5); BG OXYGEN SATURATION 98.1 % (92.0-98.5); BG OXYHEMOGLOBIN 97.8 % (94.0-97.0); BG PCO2 42.3 mmHg (35.0-45.0); BG PH 7.422 (7.350-7.450); BG PO2 119.8 mmHg (75.0-100.0); BG SAMPLE SITE ALINE; BG TOTAL HEMOGLOBIN 7.8 g/dL (12.0-18.0); BG VENT MODE VENT - CPAP
[2020-08-19] MEDS: LINEZOLID 600 MG PREMIX 300 ML IV SCH (15:53)
[2020-08-19] MEDS: DIGOXIN 125MCG TABLET GT SCH (17:33)
[2020-08-19] MEDS ORDERED: LACTULOSE 20G/30ML UDC PO NR ×2 (18:15)
[2020-08-19] MEDS ORDERED: BISACODYL 10MG SUPP PR NR (18:15)
[2020-08-19] MEDS: CEFTRIAXONE 1,000 MG in DEXTROSE 5% WATER 50 ML IV SCH (22:27)
[2020-08-20] VITALS (47 sets, daily range): BP systolic 100–172; BP diastolic 32–80
[2020-08-20] MEDS: BLOOD SUGAR DIAGNOSTIC STRIP TEST SCH ×5 (00:55→23:52)
[2020-08-20] MEDS: INSULIN LISPRO 100 UNITS/ML SUBCUT SCH ×5 (01:29→23:51)
[2020-08-20] MEDS: IPRATROPIUM/ALBUTEROL 0.5-3(2.5)MG/3ML NEB HHN SCH ×4 (02:56→20:45)
[2020-08-20] MEDS: DEXT 5%/0.2% NACL 1,000 ML IV SCH ×2 (05:13→17:21)
[2020-08-20] MEDS: LINEZOLID 600 MG PREMIX 300 ML IV SCH ×2 (05:16→17:21)
[2020-08-20] MEDS: MIDODRINE HCL 5MG TABLET PO SCH ×3 (05:39→22:38)
[2020-08-20 05:50] LABS: BASOPHILS % 0.4 % (0.0-2.0); EOSINOPHILS % 6.3 % (0.0-5.0); HEMATOCRIT. 23.2 % (42.0-52.0); HEMOGLOBIN. 7.4 g/dL (14.0-18.0); LYMPHOCYTES % 12.3 % (20.0-50.0); MEAN CORPUSCULAR HEMOGLOBIN 28.5 pg (28.0-32.0); MEAN CORPUSCULAR VOLUME 89.2 fL (80.0-94.0); MEAN PLATELET VOLUME 8.2 fl (7.4-10.4); MONOCYTES % 6.7 % (2.0-8.0); NEUTROPHILS % 74.3 % (40.0-76.0); PLATELET 279 x1000/uL (130-400); RED CELL DISTRIBUTION WIDTH 18.2 % (11.6-14.6)
[2020-08-20 05:53] LABS: CHLORIDE 111 mEq/L (98-107)
[2020-08-20 06:11] LABS: PHOSPHORUS 2.4 mg/dL (2.5-4.9)
[2020-08-20] MEDS ORDERED: POTASSIUM PHOS,M-BASIC-D-BASIC 15 MMOL in DEXT 5% WATER 250 ML IV SCH (09:00)
[2020-08-20] MEDS: PANTOPRAZOLE SODIUM 40 MG/VIAL IV SCH (10:11)
[2020-08-20] MEDS: INSULIN GLARGINE UD 100 UNITS/ML SYR SUBCUT SCH ×2 (10:12→22:39)
[2020-08-20] MEDS: DIGOXIN 125MCG TABLET GT SCH (17:21)
[2020-08-20] MEDS: CEFTRIAXONE 1,000 MG in DEXTROSE 5% WATER 50 ML IV SCH (22:38)
[2020-08-21] VITALS (16 sets, daily range): BP systolic 102–130; BP diastolic 49–67
[2020-08-21] MEDS: IPRATROPIUM/ALBUTEROL 0.5-3(2.5)MG/3ML NEB HHN SCH ×4 (01:56→20:19)
[2020-08-21] MEDS: MIDODRINE HCL 5MG TABLET PO SCH ×3 (05:22→21:02)
[2020-08-21] MEDS: BLOOD SUGAR DIAGNOSTIC STRIP TEST SCH ×4 (05:23→23:50)
[2020-08-21] MEDS: LINEZOLID 600 MG PREMIX 300 ML IV SCH (05:23)
[2020-08-21] MEDS: INSULIN LISPRO 100 UNITS/ML SUBCUT SCH ×3 (05:32→18:02)
[2020-08-21 06:22] LABS: BASOPHILS % 0.5 % (0.0-2.0); EOSINOPHILS % 4.8 % (0.0-5.0); HEMATOCRIT. 22.2 % (42.0-52.0); MEAN CORPUSCULAR HEMOGLOBIN 28.2 pg (28.0-32.0); MEAN CORPUSCULAR VOLUME 89.4 fL (80.0-94.0); MEAN PLATELET VOLUME 8.2 fl (7.4-10.4); MONOCYTES % 6.3 % (2.0-8.0); NEUTROPHILS % 76.4 % (40.0-76.0); PLATELET 301 x1000/uL (130-400); RED BLOOD CELL COUNT 2.48 mill/uL (4.7-6.1)
[2020-08-21 06:28] LABS: CHLORIDE 105 mEq/L (98-107)
[2020-08-21 06:49] LABS: PHOSPHORUS 2.8 mg/dL (2.5-4.9)
[2020-08-21] MEDS: PANTOPRAZOLE SODIUM 40 MG/VIAL IV SCH (10:24)
[2020-08-21] MEDS: INSULIN GLARGINE UD 100 UNITS/ML SYR SUBCUT SCH ×2 (10:27→22:04)
[2020-08-21] MEDS: DEXT 5%/0.2% NACL 1,000 ML IV SCH (11:01)
[2020-08-21] MEDS ORDERED: DAPTOMYCIN 500 MG in SODIUM CHLORIDE 0.9% 50 ML IV SCH (14:00)
[2020-08-21 17:22] LABS: TOTAL IRON BINDING CAPACITY 262 ug/dL (250-450)
[2020-08-21] MEDS: DIGOXIN 125MCG TABLET GT SCH (18:02)
[2020-08-21 19:03] LABS: FOLIC ACID (FOLATE) SERUM 10.3 ng/mL (>5.38)
[2020-08-21] MEDS: CEFTRIAXONE 1,000 MG in DEXTROSE 5% WATER 50 ML IV SCH (20:43)
[2020-08-22] VITALS (11 sets, daily range): BP systolic 106–131; BP diastolic 54–92
[2020-08-22] MEDS: INSULIN LISPRO 100 UNITS/ML SUBCUT SCH ×3 (00:08→11:16)
[2020-08-22] MEDS: IPRATROPIUM/ALBUTEROL 0.5-3(2.5)MG/3ML NEB HHN SCH ×3 (01:11→13:06)
[2020-08-22 02:55] LABS: BASOPHILS % 0.6 % (0.0-2.0); EOSINOPHILS % 5.2 % (0.0-5.0); HEMATOCRIT. 29.6 % (42.0-52.0); HEMOGLOBIN. 9.7 g/dL (14.0-18.0); LYMPHOCYTES % 19.2 % (20.0-50.0); MEAN CORPUSCULAR HEMOGLOBIN 28.8 pg (28.0-32.0); MEAN CORPUSCULAR VOLUME 88.2 fL (80.0-94.0); PLATELET 304 x1000/uL (130-400); RED BLOOD CELL COUNT 3.36 mill/uL (4.7-6.1); RED CELL DISTRIBUTION WIDTH 17.1 % (11.6-14.6)
[2020-08-22 03:02] LABS: CHLORIDE 106 mEq/L (98-107)
[2020-08-22 03:07] LABS: PHOSPHORUS 2.6 mg/dL (2.5-4.9)
[2020-08-22] MEDS: BLOOD SUGAR DIAGNOSTIC STRIP TEST SCH ×2 (05:28→11:15)
[2020-08-22] MEDS: MIDODRINE HCL 5MG TABLET PO SCH (05:33)
[2020-08-22] MEDS ORDERED: LIDOCAINE HCL 1% 20ML VIAL (Pyxis) INJ ONE (09:25)
[2020-08-22] MEDS: PANTOPRAZOLE SODIUM 40 MG/VIAL IV SCH (11:23)
[2020-08-22] MEDS: INSULIN GLARGINE UD 100 UNITS/ML SYR SUBCUT SCH (11:25)
[2020-08-22] MEDS ORDERED: MIDODRINE HCL 2.5MG TABLET PO SCH ×2 (11:30→13:00)
[2020-08-22] MEDS ORDERED: DAPTOMYCIN 500 MG in SODIUM CHLORIDE 0.9% 50 ML IV SCH (15:00)
[2020-08-22] MEDS: CEFTRIAXONE 1,000 MG in DEXTROSE 5% WATER 50 ML IV SCH (15:19)
== END 2020-08-22 18:38 | DRG 870 ==
LOC: ER 14:16 → EDBEDREQTM 16:18 → EDBEDREQ 16:18 → EDBEDREQSVC 16:18 → MICUSO 16:34 → EDBEDREQ 16:39 → EDBEDREQTM 16:39 → ENRESERV 21:03 → CVICU 08-18 02:27 → 5EST 08-20 23:44
PROVIDERS: ADMIT Internal Medicine; ATTEND Internal Medicine
PROC: 5A1955Z Respiratory Ventilation, Greater than 96 Consecutive Hours (ICD-10-PCS; principal; 2020-08-14)
PROC: 0BH17EZ Insertion of Endotracheal Airway into Trachea, Via Natural or Artificial Opening (ICD-10-PCS; 2020-08-14)
PROC: B54CZZA Ultrasonography of Left Lower Extremity Veins, Guidance (ICD-10-PCS; 2020-08-14)
PROC: 06HY33Z Insertion of Infusion Device into Lower Vein, Percutaneous Approach (ICD-10-PCS; 2020-08-14)
PROC: 5A12012 Performance of Cardiac Output, Single, Manual (ICD-10-PCS; 2020-08-14)
PROC: 03HY32Z Insertion of Monitoring Device into Upper Artery, Percutaneous Approach (ICD-10-PCS; 2020-08-16)
PROC: 4A133B1 Monitoring of Arterial Pressure, Peripheral, Percutaneous Approach (ICD-10-PCS; 2020-08-16)
PROC: 4A133J1 Monitoring of Arterial Pulse, Peripheral, Percutaneous Approach (ICD-10-PCS; 2020-08-16)
PROC: 30233N1 Transfusion of Nonautologous Red Blood Cells into Peripheral Vein, Percutaneous Approach (ICD-10-PCS; 2020-08-21)
PROC: 05H533Z Insertion of Infusion Device into Right Subclavian Vein, Percutaneous Approach (ICD-10-PCS; 2020-08-22)
PROC: B546ZZA Ultrasonography of Right Subclavian Vein, Guidance (ICD-10-PCS; 2020-08-22)
DX: A41.1 Sepsis due to other specified staphylococcus (principal); L89.153 Pressure ulcer of sacral region, stage 3; R65.21 Severe sepsis with septic shock; G92 Toxic encephalopathy; N17.0 Acute kidney failure with tubular necrosis; J69.0 Pneumonitis due to inhalation of food and vomit; E43 Unspecified severe protein-calorie malnutrition; I46.9 Cardiac arrest, cause unspecified; J96.01 Acute respiratory failure with hypoxia; N39.0 Urinary tract infection, site not specified; I69.354 Hemiplegia and hemiparesis following cerebral infarction affecting left non-dominant side; D68.59 Other primary thrombophilia; I50.22 Chronic systolic (congestive) heart failure; I42.9 Cardiomyopathy, unspecified; E87.1 Hypo-osmolality and hyponatremia; E87.0 Hyperosmolality and hypernatremia; I13.0 Hypertensive heart and chronic kidney disease with heart failure and stage 1 through stage 4 chronic kidney disease, or unspecified chronic kidney disease; Z16.21 Resistance to vancomycin; R74.01 Elevation of levels of liver transaminase levels; E78.5 Hyperlipidemia, unspecified; D50.9 Iron deficiency anemia, unspecified; N18.2 Chronic kidney disease, stage 2 (mild); Z20.828 Contact with and (suspected) exposure to other viral communicable diseases; L89.322 Pressure ulcer of left buttock, stage 2; L89.312 Pressure ulcer of right buttock, stage 2; L89.222 Pressure ulcer of left hip, stage 2; E11.51 Type 2 diabetes mellitus with diabetic peripheral angiopathy without gangrene; I48.0 Paroxysmal atrial fibrillation; L89.896 Pressure-induced deep tissue damage of other site; L89.216 Pressure-induced deep tissue damage of right hip; Z79.4 Long term (current) use of insulin; Z79.899 Other long term (current) drug therapy; Z93.1 Gastrostomy status; Z95.810 Presence of automatic (implantable) cardiac defibrillator; Z79.01 Long term (current) use of anticoagulants; Z68.38 Body mass index [BMI] 38.0-38.9, adult; B95.2 Enterococcus as the cause of diseases classified elsewhere; R13.10 Dysphagia, unspecified
CPT/HCPCS: 36415; 36600; 71045; 74177; 76937; 80048; 80053; 80162; 80202; 80305; 81003; 82270; 82375; 82550; 82607; 82728; 82746; 82805; 82962; 83540; 83550; 83605; 83735; 84100; 84134; 84145; 84484; 85025; 85044; 85651; 86141; 86850; 86900; 86920; 87070; 87077; 87106; 87186; 87635; 93005; 93306; 93923; 93970; 94002; 94003; 94640; 97162; 97165; 97530; 99291; A6261; C1725; C9113; J0282; J0330; J0461; J0696; J0878; J1720; J1815; J2020; J2250; J2543; J2765; J3010; J3370; J3480; J3490; J7030; J7060; P9016; P9047; Q9967